=== PATIENT | female | born 1950 | race Caucasian/White ===

== ENCOUNTER 2018-04-01 10:37 | Emergency (ER) | payer MEDICARE ==
--- NOTE | 2018-04-01 10:52 | Emergency Department Record ---
History of Present Illness - General Chief Complaint: Chest Pain Stated Complaint: LT ARM PAIN, TINGLING IN CHEST Time Seen by Provider: 04/01/18 10:50 Source: Patient Mode of Arrival: Ambulatory Limitations: No limitations - History of Present Illness Initial Comments: 68 yo female presents with about two months of recurrent left chest discomfort and left arm tingling. The symptoms come and go at times. She usually notes the symptoms at rest usually at night. The feeling is a dull ache last a several minutes. No shortness of breath, sweating, syncope. The symptoms do not seem occur with activity or exertion. No edema. No pleuritic component. No cough. The left arm at time will experience a brief tingling. No swelling, weakness, or relation to activity or exertion. She has elevated cholesterol. No CAD. No DM, HTN, or smoking. Family history of pacemaker in 71 yo brother. She normally takes an aspirin daily but has not taken one today yet. MD Complaint: Chest pain, Other Onset/Timin -: Month(s) Pain Location: Left chest Pain Radiation: None Severity: Mild Severity scale (1-10): 1 Consistency: Intermittent Improves With: Nothing Worsens With: Nothing Treatments Prior to Arrival: None - Related Data Allergies Allergy/AdvReac Type Severity Reaction Status Date / Time Sulfa (Sulfonamide Allergy ITCHING Verified 04/01/18 10:49 Antibiotics) Travel Screening - Travel/Exposure Within Last 30 Days Have you traveled within the last 30 days?: No Review of Systems Constitutional: Denies: Chills, Fever, Weakness Eyes: Reports: Eye discharge ENT: Reports: Congestion, Throat pain Respiratory: Denies: Cough, Dyspnea, Hemoptysis, Stridor, Wheezes Cardiovascular: Reports: Chest pain. Denies: Dyspnea on exertion, Edema, Palpitations, Syncope Endocrine: Denies: Fatigue Gastrointestinal: Denies: Abdominal pain, Diarrhea, Nausea, Vomiting Genitourinary: Denies: Dysuria Musculoskeletal: Denies: Arthralgia, Back pain, Joint swelling, Myalgia Skin: Denies: Bruising, Change in color, Rash Neurological: Reports: Tingling. Denies: Abnormal gait, Headache, Numbness, Paresthesias, Tremors, Vertigo, Weakness Psychiatric: Denies: Anxiety Hematological/Lymphatic: Denies: Blood Clots, Easy bleeding, Easy bruising, Swollen glands Past Medical History - SOCIAL HISTORY Smoking Status: Never smoker - RESPIRATORY Hx Respiratory Disorders: Yes Hx Bronchitis: Yes (15 years ago) Comment:: dry cough - CARDIOVASCULAR Hx Cardio Disorders: Yes Comment:: ashd - NEURO Hx Neuro Disorders: Yes Hx Headaches: Yes (migraines) - GI Hx GI Disorders: Yes Comment:: colon polyps - Hx Genitourinary Disorders: Yes Hx Bladder Problem: Yes (bladder weakness) - ENDOCRINE Hx Endocrine Disorders: No - MUSCULOSKELETAL Hx Musculoskeletal Disorders: Yes Hx Arthritis: Yes (back, knee, feet) - PSYCH Hx Psych Problems: Yes Hx Anxiety: Yes - HEMATOLOGY/ONCOLOGY Hx Hematology/Oncology Disorders: No Family Medical History Hx Heart Disease: Father, Mother Physical Exam - General General Appearance: Alert, Oriented x3, Cooperative, No acute distress Limitations: No limitations - Head Head exam: Normal inspection - Eye Eye exam: Normal appearance, PERRL. negative: Conjunctival injection, Scleral icterus - ENT ENT exam: Normal exam, Mucous membranes moist Ear exam: Normal external inspection Nasal Exam: Normal inspection Mouth exam: Normal external inspection - Neck Neck exam: Normal inspection. negative: Lymphadenopathy, Tenderness, Thyromegaly - Respiratory Respiratory exam: Normal lung sounds bilaterally. negative: Accessory muscle use, Chest wall tenderness, Decreased breath sounds, Respiratory distress, Rhonchi, Stridor, Wheezes - Cardiovascular Cardiovascular Exam: Regular rate, Normal rhythm, Normal heart sounds Peripheral Pulses: 2+: Radial (R), Radial (L) - GI/Abdominal GI/Abdominal exam: Soft. negative: Tenderness - Rectal Rectal exam: Deferred - exam: Deferred - Extremities Extremities exam: Normal inspection, Full ROM, Normal capillary refill. negative: Calf tenderness, Pedal edema, Tenderness - Back Back exam: Denies: CVA tenderness (R), CVA tenderness (L) - Neurological Neurological exam: Alert, Oriented X3 - Psychiatric Psychiatric exam: Normal affect, Normal mood - Skin Skin exam: Dry, Intact, Normal color, Warm Course Vital Signs 04/01/18 10:46 Pulse Rate 75 Respiratory 16 Rate Blood Pressure 148/86 Pulse Ox 95 - Reevaluation(s) Reevaluation #1: EKG EKG #1: 1046 Rate: 78 Rhythm: NSR [place]: Normal Intervals: Normal ST segments: Normal Normal EKG Prior: 04/01/18 10:51 04/01/18 12:03 The labs were reviewed No acute abnormalities. 04/01/18 12:06 CXR was read as no acute process. Dr Grier of [facility] [place]. 04/01/18 12:20 Dr Grier accepts the patient for transfer and further work up Medical Decision Making - Lab Data Result diagrams: 04/01/18 10:57 04/01/18 10:57 Disposition Disposition: Transfer Clinical Impression: Chest pain Qualifiers: Chest pain type: unspecified Qualified Code(s): R07.9 - Chest pain, unspecified Disposition: Acute Care Hospital Transfer Transfer To: [facility] [place] Reason For Transfer: Chest Pain Accepting Physician: Marvel Time Discussed w/Accepting Physician: 13:00 Condition: (1) Good Forms: Patient Portal Access Time of Disposition: 12:07 Quality - Quality Measures Quality Measures: N/A - Blood Pressure Screening Does Patient Have Any of the Following: No Blood Pressure Classification: Pre-Hypertensive BP Reading Systolic Measurement: 148 Diastolic Measurement: 86 Screening for High Blood Pressure: < Pre-Hypertensive BP, F/U Documented > [ [id number]] Pre-Hypertensive Follow-up Interventions: Referral to alternative/primary care provider.
[2018-04-01 11:16] LABS: BASO % 0.7 % (0-6); EOS % 1.8 % (0-6); GRAN % 60.6 % (47-80); HEMATOCRIT 42.3 % (35.0-47.0); HEMOGLOBIN 13.7 gm/dl (11.6-16.0); LYMPH % 30.6 % (16-45); MEAN CELL VOLUME 85.5 fl (81-97); MEAN CORPUSCULAR HEMOGLOBIN 27.7 pg (27-33); MEAN CORPUSCULAR HGB CONC 32.4 g/dl (32-36); MEAN PLATELET VOLUME 10.8 fl (7.4-10.4); MONO % 6.3 % (0-9); PLATELET COUNT 261 K/uL (130-400); RED BLOOD COUNT 4.95 M/uL (3.80-5.40); RED CELL DISTRIBUTION WIDTH 14.3 % (11.5-14.5); WHITE BLOOD COUNT W/O DIFF 6.1 K/uL (4.2-12.2)
[2018-04-01 11:26] LABS: BLOOD UREA NITROGEN 11 mg/dL (8-23); CREATININE 0.7 mg/dL (0.5-0.9); EST GLOMERULAR FILTRATION RATE > 60 mL/min; TOTAL PROTEIN 6.9 g/dL (6.6-8.7)
[2018-04-01 11:28] LABS: GLUCOSE,RANDOM 112 mg/dL (74-109)
[2018-04-01 11:29] LABS: PARTIAL THROMBOPLASTIN TIME 28.7 SECONDS (24.5-39.1); PROTHROMBIN TIME (PATIENT) 10.2 SECONDS (9.5-12.1)
[2018-04-01] MEDS ORDERED: ASPIRIN 81 MG CHEWABLE TABLET PO ONE (11:29)
[2018-04-01 11:31] LABS: ALBUMIN 4.6 g/dL (4.0-5.0); ALKALINE PHOSPHATASE 92 U/L (35-104); ALT/SGPT 26 U/L (<33); AST/SGOT 25 U/L (10.0-35.0)
--- NOTE | 2018-04-03 22:44 | RADIOLOGY REPORT ---
EXAM: CHEST 2 VIEWS HISTORY: LEFT CHEST AND LEFT ARM PAIN FOR 2-3 MONTHS. TECHNIQUE: Upright PA and lateral views of the chest. COMPARISON: Acute abdominal series dated 06/13/2011. FINDINGS: The heart is not enlarged and the pulmonary vasculature is nondilated. No new confluent airspace opacity is seen, nor is there costophrenic angle blunting or pneumothorax. Increased opacity in the right cardiophrenic angle is stable consistent with a prominent pericardial fat pad. There are degenerative changes scattered within the visualized spine. The thoracic aorta is mildly tortuous and atherosclerotic. IMPRESSION: NO RADIOGRAPHIC EVIDENCE OF ACUTE CARDIOPULMONARY DISEASE WITHOUT SUSPICIOUS CHANGE SINCE 06/13/2011. JOB NUMBER: [id number] MTDD
== END 2018-04-01 15:18 | disposition short-term general hospital (02) ==
LOC: ER 10:37
DX: R07.89 Other chest pain (principal); R20.2 Paresthesia of skin
CPT/HCPCS: 71046; 80053; 84484; 85025; 85610; 85730; 93005; 93010; 99285